=== PATIENT | female | born 1990 | race Caucasian/White ===

== ENCOUNTER → 2022-09-10 10:07 | Outpatient (CLI) | payer MEDICAID, SELFPAY ==
[2022-09-10 13:04] LABS: HCG,Quantitative 29184 mIU/ml (0-5.42)
[2022-09-11 11:13] LABS: Progesterone 19.3 ng/mL (.)
== END ==
PROVIDERS: PCP Pediatrics; Visit Provider Obstetrics & Gynecology
DX: N92.6 Irregular menstruation, unspecified (principal); Z32.00 Encounter for pregnancy test, result unknown
CPT/HCPCS: 36415; 84144; 84702

== ENCOUNTER → 2022-09-19 16:44 | Outpatient (CLI) | payer MEDICAID, SELFPAY | PROVIDERS: Visit Provider Obstetrics & Gynecology | DX: Z34.90 Encounter for supervision of normal pregnancy, unspecified, unspecified trimester (principal) | CPT/HCPCS: 87086 ==

== ENCOUNTER → 2022-10-01 11:32 | Outpatient (CLI) | payer MEDICAID, SELFPAY ==
[2022-10-01 12:24] LABS: Basophils # 0.1 K/mm3 (0-0.2); Basophils % 0.9 % (0.1-2.0); Eosinophils # 0.4 K/mm3 (0.0-0.4); Eosinophils % 3.7 % (0.1-12.0); Hematocrit 38.8 % (37.0-47.0); Hemoglobin 12.7 g/dL (12.2-16.2); Lymphocytes # 2.8 K/mm3 (0.7-4.5); Lymphocytes % 28.5 % (10-50); Mean Corpuscular HGB Conc 32.8 g/dL (31.8-35.4); Mean Corpuscular Hemoglobin 31.1 pg (27.0-31.2); Mean Corpuscular Volume 94.8 fl (81-99); Mean Platelet Volume 10.6 fl (7.4-10.4); Monocytes # 0.6 K/mm3 (0.1-1.0); Monocytes % 5.6 % (1.7-9.3); Neutrophils # 6.1 K/mm3 (1.8-7.8); Neutrophils % 61.3 % (37.0-80.0); Platelet Count 189 K/mm3 (142-424); Red Blood Count 4.09 M/mm3 (4.20-5.40); Red Cell Distribution Width 13.3 % (11.5-17.5)
[2022-10-02 09:01] LABS: HIV Screen 4th Generation wRfx Non Reactive (Non Reactive); Rubella Antibodies, IgG 2.05 index (Immune >0.99)
[2022-10-02 15:29] LABS: Rapid Plasma Reagin Ab Titer Non Reactive (NonRea<1:1)
[2022-10-06 02:20] LABS: Hepatitis B Surface Antigen Negative; Hepatitis C Antibody Non Reactive
== END ==
PROVIDERS: PCP Pediatrics; Visit Provider Obstetrics & Gynecology
DX: Z34.90 Encounter for supervision of normal pregnancy, unspecified, unspecified trimester (principal)
CPT/HCPCS: 36415; 85025; 86593; 86703; 86762; 86850; 87340; 87380; G0432

== ENCOUNTER → 2022-12-12 10:19 | Outpatient (CLI) | payer MEDICAID, SELFPAY ==
--- NOTE | 2022-12-12 10:19 | US_ITS ---
FINAL REPORT CLINICAL HISTORY: 20 week anatomy scan please use anatomy template FINDINGS: There is a single live intrauterine gestation. Presentation is breech. The cervix is closed and measures 3.4 cm. Placenta is posterior, grade 1. There is placenta previa. movement is noted. Heart rate is detected at 129 beats per minute. Four-chamber heart is noted. ABDOMEN: Both kidneys are unremarkable. Stomach is unremarkable. SPINE: No anomalies identified. AMNIOTIC FLUID: Appropriate amount. MEASUREMENTS: ULTRASOUND AGE: 20 weeks 5 days. GESTATION AGE: 20 weeks 3 days. ESTIMATED WEIGHT: 368 g GROWTH PERCENTILE: 58 % BPD: 4.93 cm corresponding to 21 weeks 0 days. OFD: 6.07 cm corresponding to 20 weeks 4 days. HC: 17.37 cm corresponding to 20 weeks 0 days. AC: 15.89 cm corresponding to 21 weeks 1 day. FL: 3.31 cm corresponding to 20 weeks 3 days. CEREBELLUM: 2.01 cm corresponding to 20 weeks 4 days. HUMERUS: 3.16 cm corresponding to 20 weeks 4 days. HC/AC: 1.09 CI: 81% FL/BPD: 67% FL/AC: 21% IMPRESSION: Single living IUP with an ultrasound age of 20 weeks 5 days. Placenta previa. Recommend additional follow-up. Reviewed, Interpreted and Dictated by Ronnie Payton III, MD Transcribed by Liya Llamas Authenticated and [facility]
== END ==
PROVIDERS: PCP Pediatrics; Visit Provider Obstetrics & Gynecology
DX: Z34.90 Encounter for supervision of normal pregnancy, unspecified, unspecified trimester (principal); Z3A.20 20 weeks gestation of pregnancy
CPT/HCPCS: 76811

== ENCOUNTER → 2023-01-25 09:51 | Outpatient (CLI) | payer MEDICAID, SELFPAY ==
[2023-01-25 10:06] LABS: Basophils # 0.1 K/mm3 (0-0.2); Basophils % 0.6 % (0.1-2.0); Eosinophils # 0.3 K/mm3 (0.0-0.4); Eosinophils % 2.4 % (0.1-12.0); Hematocrit 38.9 % (37.0-47.0); Hemoglobin 12.5 g/dL (12.2-16.2); Lymphocytes # 2.5 K/mm3 (0.7-4.5); Lymphocytes % 18.3 % (10-50); Mean Corpuscular HGB Conc 32.1 g/dL (31.8-35.4); Mean Corpuscular Hemoglobin 30.1 pg (27.0-31.2); Mean Corpuscular Volume 93.5 fl (81-99); Mean Platelet Volume 9.9 fl (7.4-10.4); Monocytes # 0.7 K/mm3 (0.1-1.0); Monocytes % 5.1 % (1.7-9.3); Neutrophils # 10.3 K/mm3 (1.8-7.8); Neutrophils % 73.7 % (37.0-80.0); Platelet Count 170 K/mm3 (142-424); Red Blood Count 4.16 M/mm3 (4.20-5.40); White Blood Count 13.9 K/mm3 (4.8-10.8)
[2023-01-25 10:19] LABS: Glucose,Fasting 76 mg/dl (74-100)
[2023-01-25 12:15] LABS: Glucose 1 Hour 103 mg/dL (74-100)
== END ==
PROVIDERS: PCP Pediatrics; Visit Provider Obstetrics & Gynecology
DX: Z34.92 Encounter for supervision of normal pregnancy, unspecified, second trimester (principal); Z3A.27 27 weeks gestation of pregnancy
CPT/HCPCS: 36415; 82951; 85025

== ENCOUNTER → 2023-02-07 12:53 | Outpatient (CLI) | payer MEDICAID, SELFPAY ==
--- NOTE | 2023-02-07 12:55 | US_ITS ---
PROCEDURE: US OB LIMITED POSITION CLINICAL INDICATION: locate placenta location COMPARISON: US US OB /MATERNAL DETAIL from 12/12/2022 FINDINGS: The following parameters are obtained: From her last established due date she is 28weeks 4days Viable fetus in the cephalic presentation with a posterior placenta grade 1. heart rate: 134bpm bpm. No obvious anomalies evident. profile, four chamber heart appears normal. Placenta: Posterior -placenta is posterior and appears to completely across the cervical os by 1 cm. There is one view that shows the edge of the placenta right at the cervical os. IMPRESSION: 1. Viable fetus in the cephalic presentation. 2. Posterior placenta previa comes at least to the internal os and may project slightly beyond on the transvaginal views . Dictated by: Yared Suarez MD 02/09/2023 14:10 Yared Suarez MD in OV 02/09/2023 14:10
== END ==
PROVIDERS: PCP Pediatrics; Visit Provider Obstetrics & Gynecology
DX: Z36.89 Encounter for other specified antenatal screening (principal); Z34.92 Encounter for supervision of normal pregnancy, unspecified, second trimester; Z3A.27 27 weeks gestation of pregnancy
CPT/HCPCS: 76815

== ENCOUNTER → 2023-03-28 00:04 | Outpatient (CLI) | payer MEDICAID, SELFPAY | PROVIDERS: PCP Nurse Practitioner Family; Visit Provider Nurse Practitioner Family | DX: J02.9 Acute pharyngitis, unspecified (principal); B95.1 Streptococcus, group B, as the cause of diseases classified elsewhere | CPT/HCPCS: 87070; 87077; 87186 ==

== ENCOUNTER → 2023-04-04 12:00 | Outpatient (CLI) | payer MEDICAID, SELFPAY | PROVIDERS: PCP Nurse Practitioner Family; Visit Provider Obstetrics & Gynecology | DX: Z34.93 Encounter for supervision of normal pregnancy, unspecified, third trimester (principal); Z3A.36 36 weeks gestation of pregnancy | CPT/HCPCS: 86403 ==

== ENCOUNTER 2023-05-03 05:08 | Inpatient (IN) | payer MEDICAID, SELFPAY ==
[2023-05-03] VITALS (8 sets, daily range): BP systolic 109–154; BP diastolic 55–74; PULSE 65–85; RESP 11–20; TEMP 36.1–36.7; O2SAT 97–100; BMI 28.1
[2023-05-03 05:47] LABS: Appearance,Urine CLEAR (Clear); Bilirubin,Urine Negative (Negative); Blood, Urine Negative (Negative); Color,Urine YELLOW (Yellow); Glucose,Urine (UA) Negative (Negative); Ketones,Urine Negative (Negative); Leukocyte Esterase,Urine Negative (Negative); Microscopic, Urine URINE MICROSCOPIC (MICROSCOPIC); Nitrate,Urine Negative (Negative); Protein,Urine Negative (Negative); Specific Gravity, Urine >= 1.030 (1.005-1.030); Urobilinogen,Urine 0.2 EU/dl (0.2)
[2023-05-03 05:48] LABS: Basophils # 0.1 K/mm3 (0-0.2); Basophils % 0.8 % (0.1-2.0); Eosinophils # 0.3 K/mm3 (0.0-0.4); Eosinophils % 1.7 % (0.1-12.0); Hematocrit 41.8 % (37.0-47.0); Hemoglobin 13.9 g/dL (12.2-16.2); Lymphocytes # 3.6 K/mm3 (0.7-4.5); Lymphocytes % 20.3 % (10-50); Mean Corpuscular HGB Conc 33.4 g/dL (31.8-35.4); Mean Corpuscular Hemoglobin 31.2 pg (27.0-31.2); Mean Corpuscular Volume 93.6 fl (81-99); Mean Platelet Volume 10.7 fl (7.4-10.4); Monocytes # 0.9 K/mm3 (0.1-1.0); Monocytes % 5.1 % (1.7-9.3); Neutrophils # 12.8 K/mm3 (1.8-7.8); Neutrophils % 72.1 % (37.0-80.0); Platelet Count 188 K/mm3 (142-424); Red Blood Count 4.47 M/mm3 (4.20-5.40); Red Cell Distribution Width 13.1 % (11.5-17.5); White Blood Count 17.8 K/mm3 (4.8-10.8)
[2023-05-03 05:49] LABS: MANUAL DIFFERENTIAL MANUAL DIFFERENTIAL (MANUAL DIFF)
[2023-05-03 06:00] LABS: Amphetamine/Metha Screen,Urine Negative ng/ml (<1000)
[2023-05-03 06:01] LABS: Barbiturates Screen,Urine Negative ng/ml (<200)
[2023-05-03 06:02] LABS: Eosinophils % 4 % (0-3); Lymphocytes % 25 % (10-50); Monocytes % 4 % (2-9); Neutrophils % 62 % (42-76); Total Cells Counted 100
[2023-05-03 06:02] LABS: Benzodiazepines Screen,Urine Negative ng/ml (<200); Cannabinoid Screen,Urine Negative ng/ml (<50)
[2023-05-03 06:03] LABS: Platelet Estimate Normal; RBC Morphology Normal
[2023-05-03 06:03] LABS: Cocaine Screen,Urine Negative ng/ml (<300)
[2023-05-03 06:04] LABS: Methadone Screen,Urine Negative ng/ml (<300); Opiate Screen,Urine Negative ng/ml (<300)
[2023-05-03 06:05] LABS: Phencyclidine Screen,Urine Negative ng/ml (<25); Squamous Epithelial Cell,Urine Occasional #/hpf (0-5); WBC,Urine Occasional #/hpf (0-3)
--- NOTE | 2023-05-03 08:43 | EXP.OB.APHP ---
OB - H&P: HPI Antepartum History of Present Illness Chief complaint: Elective induction of labor History of present illness: Mrs Vijaya Vail is a 32 yo at 40w5d who presents to [facility] Labor and Delivery for scheduled induction of labor for post term. She admits contractions starting increasing this morning. Baby is active. She has had good care. GBS negative. History of Present Criteria for establishing EDC:: LMP confirmed by 1st trimester US care: good care Ultrasounds: normal mid trimester US Obstetrical complications: none Medical complications: none Labs Blood type: O (+) positive Rubella: immune RPR/VDRL: nonreactive GBS status: negative HBsAG: negative PFSH [facility] Disclaimer: The information contained in this section may have been updated after the patient was seen, as this information can be updated by other users. Medical History (Updated 05/03/23 @ 08:50 by Shilpa Lloyd DO) Encounter for induction of labor Marijuana use during Maternal tobacco use, antepartum Placenta previa antepartum Post term over 40 weeks Surgical History No history of previous surgery Family History Other No significant family history Social History Smoking Status: Current every day smoker tobacco type: cigarettes alcohol intake: never substance use type: denies use current occupational status: unemployed Travel in the last 8 weeks: None Review of Systems Review of Systems Review of systems:: pertinent systems reviewed and negative unless documented below Meds Home Medications and Allergies Home Medications Medication Instructions Recorded Confirmed Type prenat.vits,carola,[id number] 1 tab PO DAILY #30 tabs 09/19/22 04/29/23 Rx amoxicillin 500 mg capsule 500 mg PO TID 04/25/23 04/29/23 History New Prescriptions to Start Prescriptions: Allergies Allergy/AdvReac Type Severity Reaction Status Date / Time No Known Allergies Allergy Verified 04/29/23 12:59 OB - H&P: Exam Constitutional no acute distress and cooperative Routine HEENT Exam Head: Present normocephalic and atraumatic Eye: Absent conjunctivae pink ENT: Present mucous membranes moist Routine Neck Exam Present full ROM Routine Respiratory Exam Present CTA bilaterally and normal respiratory effort Routine Cardiovascular Exam Present RRR Routine Abdominal Exam Present soft (Gravid); Absent tenderness Routine Rectal Exam Patient deferred: visual exam Routine Exam External: Present normal urethra appearance; Absent erythema, tenderness, lesions, lacerations or vulvar tenderness Routine Extremities Exam Present edema (+1 bilateral lower extremity edema) and full ROM; Absent calf tenderness Routine Neurological Exam Present alert, oriented X3 and moving all extremities Routine Psychiatric Exam Present normal affect and cooperative Detailed Labor and Delivery Exam Dilation (cm): 4 Effacement (%): 60 Cervix position: posterior station: -2 Consistency: soft Membranes: artificially ruptured (amniotomy performed without difficulty, light meconium stained amniotic fluid) Amniotic fluid: thin meconium Baseline heart rate: 130 monitor accelerations: Present monitor decelerations: None terminal superintendent variability: Moderate (11-25) Contraction frequency (min): 2 OB - Results Labs Labs: Short CBC 05/03/23 Range/Units 05:30 WBC 17.8 H (4.8-10.8) K/mm3 Hgb 13.9 (12.2-16.2) g/dL Hct 41.8 (37.0-47.0) % Plt Count 188 (142-424) K/mm3 Urine 05/03/23 Range/Units 05:26 Urine Color Yellow (Yellow) Urine Appearance Clear (Clear) Urine pH 6.0 (5.0-8.5) Ur Specific [place] >= 1.030 (1.005-1.030) Urine Protein Negative (Negative) Urine Glucose (UA) Negat
--- NOTE | 2023-05-03 08:55 | HMH.PHAINT1 ---
Pharmacy Intervention Comments: MEDICATION RECONCILIATION COMPLETED ON PATIENT USING EXTERNAL FILL HISTORY FROM PHARMACY. -NICHOLAS HOROWITZ, CHARMAINED
--- NOTE | 2023-05-03 15:58 | EXP.LABOR.NO ---
Labor Note Subjective: Date: 05/03/23 Time: 15:58 irregular contractions Objective: NST:: Reactive Cervical Dilation:: 5 Effacement:: 60% Station: -2 Membranes: artificially ruptured Comment:: meconium stained amniotic fluid Fetus: monitoring type:: Internal and External Assessment: Labor progressing?: No Cephalopelvic disproportion?: Yes Problems: (1) Post term over 40 weeks: Category: Medical Code(s): O48.0 - Post-term (2) Encounter for induction of labor: Category: Medical Code(s): Z34.90 - Encounter for supervision of normal , unspecified, unspecified trimester (3) Marijuana use during : Category: Medical Code(s): O99.320 - Drug use complicating , unspecified trimester; F12.90 - Cannabis use, unspecified, uncomplicated (4) Maternal tobacco use, antepartum: Category: Medical Code(s): O99.330 - Smoking (tobacco) complicating , unspecified trimester (5) Cephalopelvic disproportion: Category: Medical Code(s): O33.9 - Maternal care for disproportion, unspecified Plan: Anesthesia for epidural?: No Plan for ?: Yes Additional information:: Cervical exam unchanged over the past 4 hours. Upon exam, baby was felt to be asynclitic. Discussed exam findings with patient Decision was made to proceed with primary secondary to CPD. Discussed risks, benefits, alternatives, expectations and possible complications of surgery. All questions addressed and answered. She voiced understanding of risks and possible complications. Consent form signed. Proceed with primary
--- NOTE | 2023-05-03 18:15 | EXP.OP.NOTE ---
Date of procedure: 05/03/23 Pre-op Diagnosis:: 1. IUP at 40w5d 2. Elective induction of labor 3. Marijuana use in 4. Tobacco use 5. Failure to progress 6. Cephalopelvic disproportion Post-op Diagnosis:: 1. IUP at 40w5d 2. Elective induction of labor 3. Marijuana use in 4. Tobacco use 5. Failure to progress 6. Cephalopelvic disproportion 7. Nuchal cord x 1 Procedure performed:: Primary Low Transverse Section Surgeon:: Shilpa Lloyd DO Gis Consultant(s):: Isaura Vu DO SURVEILLANCE TECHNICIAN:: Other (FEDERICO Gutierrez) Anesthesia: spinal Estimated blood loss (mL): 700 Clinical Note:: Mrs Vijaya Vail is a 32 yo at 40w5d admitted to [facility] Labor and Delivery for scheduled induction of labor for post dates. Induction was performed with Pitocin and amniotomy. She progressed to 5/60/-2, posterior with no further progression over 4 hours. Baby was felt to be asynclitic on exam. Decision was made to proceed with primary secondary to CPD and failure to progress. Operative findings:: 1. Live female baby, Gelacio, weighing 7lb 11 oz. APGARs 7, 9 2. Grossly normal appearing uterus, bilateral fallopian tubes and ovaries 3. Nuchal cord x 1, easily reduced Operative note:: The risks, benefits and alternatives of the procedure were reviewed with the patient. Informed consent was obtained. Patient was taken to the operating room where spinal anesthesia was placed. The patient received 2 grams of Ancef and Azithromycin 500 mg preoperatively. Patient was placed in dorsal supine position with a leftward tilt. SCDs in place. Canales catheter was inserted and draining clear urine prior to the start of the procedure. heart tones were obtained, 148. Vagina was prepped with Betadine swabs x 3. Patient was then prepped and draped in normal sterile fashion. Allis clamp test was performed to ensure adequate anesthesia. A Pfannenstiel skin incision was made 2 cm above pubic symphysis. This was carried through to underlying layer of fascia. Fascia was incised in midline, extended laterally with Ramos scissors. Superior aspect of fascial incision was grasped with two Kassy clamps, elevated up, and rectus muscle dissected off bluntly and sharply with Ramos scissors. The retcus muscle was then in the midline and the peritoneum was entered bluntly with a digit. Peritoneal incision was then extended superiorly and inferiorly with good visualization of the bladder. Adeel retractor was inserted. The lower uterine segment was incised in a transverse fashion. Clear amniotic fluid was noted. Head was delivered without difficulty. Nuchal x 1 was easily reduced. Remainder of body was delivered without difficulty. Mouth and nares were bulb suctioned. Spontaneous cry was noted. Delayed cord clamping was performed for 60 seconds. The umbilical cord was clamped and cut. The was handed to awaiting pediatric staff in stable condition. Dr. Kelsey was present. Apgars were 7(1 min), 9(5 min). Cord blood was obtained. Gentle traction on the umbilical cord and uterine fundal massage delivered the placenta. Placenta was intact. Placenta will be sent to pathology for review. Uterus was cleared of all clots and debris with a moist laparotomy sponge. Corners of the uterine incision were grasped with Allis clamps. The uterine incision was reapproximated with # 1 Vicryl suture in a running, locked stitch. Hemostasis was noted. However, edges of uterine incision appeared raw. Surgicel powder was applied over closed uterine incision. Posterior cul-de-sac was cleaned with moist laparotomy sponge. Gutters cleared of all clots and debris with a moist laparotomy sponge. Reinspection of the lower uterine segment demonstrated small amount of oozing. Blanca was applied over uterine incision. Hemostasis was noted. At this point all instruments and sponges were removed from the pelvis.? The peritoneum was grasped with Mae clamps x 3. The peritoneum was reapproximated w
--- NOTE | 2023-05-03 18:59 | EXP.ANES.CKL ---
[facility] Disclaimer: The information contained in this section may have been updated after the patient was seen, as this information can be updated by other users. Medical History (Updated 05/03/23 @ 16:06 by Shilpa Lloyd DO) Cephalopelvic disproportion Encounter for induction of labor Marijuana use during Maternal tobacco use, antepartum Placenta previa antepartum Post term over 40 weeks Surgical History No history of previous surgery Family History Other No significant family history Social History Smoking Status: Current every day smoker tobacco type: cigarettes alcohol intake: never substance use type: denies use current occupational status: unemployed Travel in the last 8 weeks: None [facility] Anesthesia Checklist Patient Identification Patient Identification: Arm Band and Family Structural Data Admitted From: Home Planned Operative Procedure/s: , due to cpd. Verified Documents: Surgical Consent and History and Physical NPO Status Verified Time NPO: 00:00 Additional verifications Patient : Yes Anesthesia Reactions: No Hx Blood Transfusions: No Blood Transfusion Reaction: No Cephalosporin Allergy: No Previous Colonoscopy: No Airway Assessment Mallampati Score:: Class II C-Spine Mobility Assessed: Yes TMJ Mobility Assessed: Yes Dentition: Good Dentition Neurological Assessment Level of Consciousness: Alert, Appropriate and Follows Commands Hx Seizures: No Numbness or tingling in extremities: No Anesthesia Plan Anesthesia Risk discussed: Yes ASA Class: I Anesthesia Type: Spinal Preoperative Comments Pre-Operative Comments: CPD.
--- NOTE | 2023-05-03 19:02 | EXP.ANES.I ---
[facility] Anesthesia Record Part I Anesthesia Record I Intake, IV Amount: 1,254 Hydration: Adequate Estimated blood loss (mL): 700 Urine output (mL): 1,000 Blood Products used (#): none Blood Pressure: 154/67 SaO2: 98 Pulse Rate: 65 Airway Patency: Patent Respiratory Rate: 14 Temperature: 97 F Patient is:: Awake and Stable Stable to PACU at:: 18:10
[2023-05-03 19:54] LABS: Microscopic,Cath URINE MICROSCOPIC (MICROSCOPIC)
[2023-05-03 20:24] LABS: Appearance,Urine/Cath CLEAR (Clear); Bilirubin,Cath Negative (Negative); Blood, Urine/Cath 1+ (Negative); Color,Urine/Cath YELLOW (Yellow); Glucose,Urine/Cath (UA) Negative (Negative); Ketones,Urine/Cath Negative (Negative); Leukocyte Esterase,Cath Negative (Negative); Nitrate,Cath Negative (Negative); Protein,Urine/Cath Negative (Negative); Urobilinogen,Cath 0.2 EU/dl (0.2)
[2023-05-03 20:37] LABS: RBC,Urine/Cath Occasional # /hpf (0-3)
[2023-05-04 00:21] VITALS: BP 121/57; PULSE 68; RESP 17; TEMP 36.8; O2SAT 98
[2023-05-04 04:05] VITALS: BP 106/51; PULSE 63; RESP 18; TEMP 36.9; O2SAT 98
[2023-05-04 07:43] LABS: Basophils # 0.1 K/mm3 (0-0.2); Basophils % 0.2 % (0.1-2.0); Eosinophils % 0.2 % (0.1-12.0); Hematocrit 34.4 % (37.0-47.0); Hemoglobin 11.2 g/dL (12.2-16.2); Lymphocytes # 2.5 K/mm3 (0.7-4.5); Lymphocytes % 11.2 % (10-50); Mean Corpuscular HGB Conc 32.7 g/dL (31.8-35.4); Mean Corpuscular Volume 95.1 fl (81-99); Mean Platelet Volume 11.4 fl (7.4-10.4); Monocytes # 1.2 K/mm3 (0.1-1.0); Monocytes % 5.4 % (1.7-9.3); Neutrophils # 18.2 K/mm3 (1.8-7.8); Neutrophils % 82.9 % (37.0-80.0); Platelet Count 169 K/mm3 (142-424); Red Blood Count 3.62 M/mm3 (4.20-5.40); Red Cell Distribution Width 13.3 % (11.5-17.5)
[2023-05-04 07:48] LABS: MANUAL DIFFERENTIAL MANUAL DIFFERENTIAL (MANUAL DIFF)
[2023-05-04 08:41] LABS: Lymphocytes % 13 % (10-50); Monocytes % 5 % (2-9); Neutrophils % 82 % (42-76); Total Cells Counted 100
[2023-05-04 08:42] LABS: Platelet Estimate Normal; RBC Morphology Normal
--- NOTE | 2023-05-04 10:27 | PC.NURSE ---
Call made to central intake r/t positive drug screens on mom. 09/19/22 THC, 01/31/23 cocaine metabolite. Web ID [id number] and spoke with a female with ID number [id number]. Called at 1006.
--- NOTE | 2023-05-04 12:06 | EXP.ACUTE.PN ---
Subjective *Date: 05/04/23 *Time: 12:06 Interval history: POD # 1 s/p PLTCS Sitting comfortably in bed. Breast feeding. Pain controlled. Appropriate lochia. Tolerating regular diet. Voiding without difficulty and passing flatus. Ambulating well ad yolanda. Denies fever/chills, chest pain and shortness of breath. No headaches, vision changes, dizziness/lightheadedness. Medical Exam Vital signs and Labs for Last 24 Hours: Vital Signs Temp Pulse Pulse Resp BP BP Pulse Ox 05/04/23 04:05 98.5 F 63 18 106/51 L 98 05/04/23 00:21 98.2 F 68 17 121/57 L 98 05/03/23 19:06 97.5 F L 75 18 122/69 97 05/03/23 19:00 97.0 F L 76 14 130/72 100 05/03/23 18:50 97.0 F L 74 13 128/73 100 05/03/23 18:40 97.0 F L 70 11 L 131/74 100 05/03/23 18:30 97.0 F L 68 13 133/68 100 05/03/23 18:20 97.0 F L 80 20 141/72 H 100 05/03/23 18:10 97.0 F L 67 12 154/67 H 99 05/03/23 19:06 97 F L 65 14 154/67 H O2 Del Method 05/04/23 04:05 Room Air 05/04/23 00:21 Room Air 05/03/23 19:06 Room Air 05/03/23 19:00 Room Air 05/03/23 18:50 Room Air 05/03/23 18:40 Room Air 05/03/23 18:30 Room Air 05/03/23 18:20 Room Air 05/03/23 18:10 Room Air 05/03/23 19:06 Intake and Output 05/03/23 05/04/23 05/04/23 23:59 07:59 15:59 Intake Total 1254 / 1254 Balance 1254 / 1254 Intake: Intake, Total IV Amount 1254 / 1254 Laboratory Results - last 24 hr 05/03/23 17:24: Urine Color Yellow, Urine Appearance Clear, Urine pH 6.0, Ur Specific [place] 1.010, Urine Protein Negative, Urine Glucose (UA) Negative, Urine Ketones Negative, Urine Blood 1+, Urine Nitrate Negative, Urine Bilirubin Negative, Urine Urobilinogen 0.2, Ur Leukocyte Esterase Negative, Urine RBC Occasional, Urine WBC None, Ur Squamous Epith Cells None, Urine Bacteria None 05/04/23 07:26: WBC 22.0 H*, RBC 3.62 L, Hgb 11.2 L, Hct 34.4 L, MCV 95.1, MCH 31.0, MCHC 32.7, RDW 13.3, Plt Count 169, MPV 11.4 H, Neut % (Auto) 82.9 H, Lymph % (Auto) 11.2, [place] % (Auto) 5.4, Eos % (Auto) 0.2, Baso % (Auto) 0.2, Neut # (Auto) 18.2 H, Lymph # (Auto) 2.5, [place] # (Auto) 1.2 H, Eos # (Auto) 0.0, Baso # (Auto) 0.1, Total Counted 100, Neutrophils % (Manual) 82 H, Lymphocytes % (Manual) 13, Monocytes % (Manual) 5, Platelet Estimate Normal, RBC Morphology Normal I & O for Labs for Last 24 Hours: Intake & Output 05/01/23 05/02/23 05/03/23 05/04/23 23:59 23:59 23:59 23:59 Intake Total 1254 / 1254 Balance 1254 / 1254 Weight 180 lb Assessment and Plan *Assessment and plan (1) Post term over 40 weeks: Status: Acute Category: Medical Code(s): O48.0 - Post-term (2) S/P : Status: Acute Category: Surgical Code(s): Z98.891 - History of uterine scar from previous surgery (3) Encounter for induction of labor: Status: Acute Category: Medical Code(s): Z34.90 - Encounter for supervision of normal , unspecified, unspecified trimester (4) Failure to progress in labor: Status: Acute Category: Medical Code(s): O62.2 - Other uterine inertia (5) Cephalopelvic disproportion: Status: Acute Category: Medical Code(s): O33.9 - Maternal care for disproportion, unspecified (6) Marijuana use during : Status: Acute Category: Medical Code(s): O99.320 - Drug use complicating , unspecified trimester; F12.90 - Cannabis use, unspecified, uncomplicated (7) Maternal tobacco use, antepartum: Status: Acute Category: Medical Code(s): O99.330 - Smoking (tobacco) complicating , unspecified trimester (8) Acute blood loss anemia: Status: Acute Category: Medical Code(s): D62 - Acute posthemorrhagic anemia Plan Continue routine care Encouraged increased ambulation Plan d/c home POD # 2 or POD # 3
[2023-05-04 20:03] VITALS: BP 124/74; PULSE 69; RESP 17; TEMP 36.9; O2SAT 100
[2023-05-05 03:23] VITALS: BP 116/59; PULSE 65; RESP 17; TEMP 36.7; O2SAT 98
[2023-05-05 08:36] VITALS: BP 121/74; PULSE 67; RESP 18; TEMP 36.7; O2SAT 97
--- NOTE | 2023-05-05 08:53 | PC.NURSE ---
Inquired with central intake on an update on the case. New report made related to MAEGAN scoring. Spoke with Ana with ID #[id number] and new web ID #[id number]- Ana states she will call Henrry MELO operations trainer social service agency director and report all information that was given.
--- NOTE | 2023-05-05 09:39 | EXP.DC.SUM ---
General Admission date:: 05/03/23 Discharge date: 05/05/23 HPI HPI HPI: POD # 2 s/p PLTCS Resting comfortably in bed. Pain controlled. Breast feeding. Light lochia. Voiding without difficulty and passing flatus. Tolerating regular diet. Denies fever/chills, chest pain and shortness of breath. No headaches, vision changes, lightheadness/dizziness. Admits to mild lower extremity edema Ambulating well ad yolanda. Hospital Course Hospital Course Hospital Course: Mrs Vijaya Vail is a 32 yo at 40w5d admitted to [facility] Labor and Delivery for scheduled induction of labor for post dates. Induction was performed with Pitocin and amniotomy. She progressed to 5/60/-2, posterior with no further progression over 4 hours. Baby was felt to be asynclitic on exam. Decision was made to proceed with primary secondary to CPD and failure to progress. She underwent a primary on 05/03/23. She delivered a live female baby, Gelacio, weighing 7lb 11 oz. APGARs 7, 9. EBL 700 mL. She did well postoperatively/. Pain controlled. Light lochia. Breast feeding. Voiding without difficulty and passing flatus. Tolerating regular diet. Vital signs stable, afebrile. Heart regular rate and rhythm. Lungs clear to auscultation. Abdomen soft, nontender and incision clean/dry/intact. She had +1 bilateral lower extremity edema. No calf tenderness to palpation. She was ambulating well ad yolanda. Normal hospital course. She was discharged to home on POD # 2. Exam Data for Last 24 hours Vital signs and Labs for Last 24 Hours: Temp Pulse Resp BP Pulse Ox O2 Del Method 98.0 F 67 18 121/74 97 Room Air 05/05/23 08:36 05/05/23 08:36 05/05/23 08:36 05/05/23 08:36 05/05/23 08:36 05/05/23 08:36 I & O for Last 24 hours: Intake & Output 05/02/23 05/03/23 05/04/23 05/05/23 23:59 23:59 23:59 23:59 Intake Total 1254 / 1254 Balance 1254 / 1254 Weight 180 lb Constitutional Constitutional: no acute distress and cooperative *Routine HEENT Exam Head: Present normocephalic and atraumatic Eye: Absent conjunctivae pink ENT: Present mucous membranes moist *Routine Neck Exam Neck: Present full ROM *Routine Respiratory Exam Respiratory: Present CTA bilaterally and normal respiratory effort *Routine Cardiovascular Exam Cardiovascular: Present RRR *Routine Abdominal Exam Abdominal: Present soft and normoactive bowel sounds; Absent tenderness or distended Comments: Uterine fundus firm and below umbilicus, pfannenstiel incison clean/dry/intact with steri strips in place *Routine Rectal Exam Patient deferred: visual exam *Routine Exam Patient deferred: external exam *Routine Extremities Exam Extremities: Present edema (+1 bilateral lower extremity edema) and full ROM; Absent calf tenderness *Routine Neurological Exam Neurological: Present alert, oriented X3 and moving all extremities Routine Psychiatric Exam Psychiatric: Present normal affect and cooperative DS: Diagnosis Discharge Diagnosis (1) Post term over 40 weeks: Status: Acute Code(s): O48.0 - Post-term (2) S/P : Status: Acute Code(s): Z98.891 - History of uterine scar from previous surgery (3) Encounter for induction of labor: Status: Acute Code(s): Z34.90 - Encounter for supervision of normal , unspecified, unspecified trimester (4) Failure to progress in labor: Status: Acute Code(s): O62.2 - Other uterine inertia (5) Cephalopelvic disproportion: Status: Acute Code(s): O33.9 - Maternal care for disproportion, unspecified (6) Marijuana use during : Status: Acute Code(s): O99.320 - Drug use complicating , unspecified trimester; F12.90 - Cannabis use, unspecified, uncomplicated (7) Maternal tobacco use, antepartum: Status: Acute Code(s): O99.330 - Smoking (tobacco) complicating , unspecified trimeste
[2023-05-06 14:28] VITALS: BP 130/72; PULSE 76; RESP 14; TEMP 36.1; O2SAT 100
--- NOTE | 2023-05-06 14:28 | P.PNANES_ITS ---
[facility] Anesthesia Record Part II Anesthesia Record Part II Discharge Time: 19:00 Destination: Obstetric PACU nurse assessment reviewed?: Yes Patient Condition:: Good Anesthesia Complications:: None Swallowing reflex intact?: Yes Airway Patency: Patent Cyanosis?: No Blood Pressure: 130/72 SaO2: 100 Respiratory Rate: 14 Pulse Rate: 76 Temperature: 97 F Mental Status: Alert & Oriented Pain level:: 0 Nausea and/or vomitting:: None Intake, IV Amount: 0 Hydration: Adequate
== END 2023-05-05 12:33 | disposition home or self-care (01) | DRG 787 ==
PROVIDERS: Admitting Provider Nurse Practitioner Obstetrics & Gynecology; PCP Pediatrics; Visit Provider Obstetrics & Gynecology
PROC: 10D00Z1 Extraction of Products of Conception, Low, Open Approach (ICD-10-PCS; CPT 59514; principal; 2023-05-03 16:50)
DX: O48.0 Post-term pregnancy (principal); O99.324 Drug use complicating childbirth; O99.334 Smoking (tobacco) complicating childbirth; Z3A.40 40 weeks gestation of pregnancy; Z37.0 Single live birth; O33.9 Maternal care for disproportion, unspecified; F12.90 Cannabis use, unspecified, uncomplicated; O62.0 Primary inadequate contractions; O69.81X0 Labor and delivery complicated by cord around neck, without compression, not applicable or unspecified; O62.2 Other uterine inertia; F17.210 Nicotine dependence, cigarettes, uncomplicated
CPT/HCPCS: 59514; 36415; 59025; 80305; 81001; 85007; 85025; 86850; 88307; C1758; C9290; J0456; J0690

== ENCOUNTER 2023-06-18 11:31 | Emergency (ER) | payer MEDICAID, SELFPAY ==
[2023-06-18 11:40] VITALS: BP 141/90; PULSE 102; RESP 18; TEMP 36.9; O2SAT 100; BMI 27.1
[2023-06-18 11:58] LABS: UTC Strep Screen (Rapid) Negative (Negative)
--- NOTE | 2023-06-18 12:01 | EXP.UTC ---
Discharge Plan Disposition Patient Disposition: Home, Self-Care Condition: Good Prescriptions Prescriptions: New amoxicillin 500 mg capsule 500 mg PO BID 10 Days Qty: 20 0RF No Action PNV cmb#95-ferrous fumarate-FA [] 28 mg iron- 800 mcg tablet 1 tab PO DAILY Referrals Follow up/Referrals: Jignesh Sheffield [Primary Care Provider] - See instructions Activity Restrictions/Add. Instructions Additional Instructions/Restrictions: *Monitor Temp, Over the counter Motrin or Tylenol as directed/as needed Tylenol every 4 hours and Motrin every 6 hours (as long as your family doctor has told you that you can take it) for fever or pain. and straight to ER if unable to lower temp less than 101.0 after medication given *Warm salt water gargles may help to soothe the throat *Throat Lozenges? *Warm fluids like tea with honey may help to soothe the throat? *Sleep elevated *Humidifier/Vaporizer Take medication as prescribed Your throat swab was sent for culture. Those results are typically sent to your primary care. Be sure to follow up in 2-3 days with your family doctor/primary care physician if no improvement so they can review those result and treat if necessary. If you don?t have a primary care doctor, I recommend you get one but in the mean time, you will have to return to a walk in clinic Follow up IMMEDIATELY for new or worsening symptoms or no Noticeable improvement over the next 48-72 hours. 911 for difficulty breathing or swallowing Clinical Impressions Clinical Impression: Pharyngitis Qualifiers: Pharyngitis/tonsillitis etiology: unspecified etiology Qualified Code(s): J02.9 - Acute pharyngitis, unspecified Instructions Patient Instructions: Sore Throat Discharge ED Provider: [place]bar[place] [facility] [place] General Stated complaint: POSSIBLE STREP Mode of Arrival: Ambulatory Source of Information: Patient Limitations: No Limitations Time Seen by Provider: 06/18/23 12:01 Description of Symptoms (Recalled from Triage Doc. by RN): PATIENT C/O SORE THROAT, NECK PAIN, AND HEADACHE SINCE YESTERDAY HEENT Symptoms (Recalled from RN notes): Yes Resp Symptoms (Recalled from RN notes): No Skin Symptoms (Recalled from RN notes): No MS Symptoms (Recalled from RN notes): No Functional Status (Recalled from RN notes): WNL History of Present Illness Provider Complaint: Patient states that she thinks she has strep throat States that she has been having sore throat, pain in the sides of her neck/throat area and headache like she has when she has strep throat States today her throat was hurting worse so she came in States that she is is breast feeding Related Data Home Medications Medication Instructions Recorded Confirmed vit no.95-ferrous 1 tab PO DAILY Supplement 05/03/23 05/20/23 fumarate 28 mg-folic acid 800 mcg tablet () Previous Rx's Medication Instructions Recorded amoxicillin 500 mg capsule 500 mg PO BID 10 days #20 caps 06/18/23 Allergies Allergy/AdvReac Type Severity Reaction Status Date / Time No Known Allergies Allergy Verified 05/20/23 15:55 Worker's Comp Is this a Worker's Comp case?: No PFS PFS Disclaimer: The information contained in this section may have been updated after the patient was seen, as this information can be updated by other users. Medical History Acute blood loss anemia Cephalopelvic disproportion Encounter for induction of labor Failure to progress in labor Marijuana use during Maternal tobacco use, antepartum Placenta previa antepartum Post term over 40 weeks Surgical History No history of previous surgery S/P Family History Other No significant family history Social History (Reviewed 05/20/23 @ 16
[2023-06-18 12:05] VITALS: BP 141/90; PULSE 102; RESP 18; TEMP 36.9; O2SAT 100
== END 2023-06-18 12:08 | disposition home or self-care (01) ==
PROVIDERS: Emergency Provider Nurse Practitioner; PCP Pediatrics
DX: J02.9 Acute pharyngitis, unspecified (principal); M54.2 Cervicalgia; R51.9 Headache, unspecified; F17.210 Nicotine dependence, cigarettes, uncomplicated
CPT/HCPCS: 87880; 99204; 99212; G0463

== ENCOUNTER 2023-07-08 12:37 | Emergency (ER) | payer MEDICAID, SELFPAY ==
[2023-07-08 12:40] VITALS: BP 166/70; PULSE 92; RESP 18; TEMP 36.8; O2SAT 97; BMI 25.0
--- NOTE | 2023-07-08 12:45 | EXP.UTC ---
Discharge Plan Disposition Patient Disposition: Home, Self-Care Condition: Good Prescriptions Prescriptions: New prednisone 10 mg tablet 10 mg PO BID 4 Days Qty: 8 0RF azithromycin [Zithromax] 250 mg tablet 250 mg PO UD DOSE PK Qty: 6 0RF Rx Instructions: Take two (2) tablets today, then one (1) tablet days #2 thru #5 [id number]-[id number]-VH [Bromfed DM] 2-30-10 mg/5 mL Syrup 5 ml PO Q6H PRN (Reason: Cough) Qty: 240 0RF Referrals Follow up/Referrals: Jigensh Sheffield [Primary Care Provider] - See instructions Activity Restrictions/Add. Instructions Additional Instructions/Restrictions: Drink plenty of fluids. Take tylenol or ibuprofen for pain or fever. Take the medications as directed. Follow up with your regular doctor. GO TO THE ER FOR ANY WORSENING SYMPTOMS Clinical Impressions Clinical Impression: Pharyngitis, Acute viral syndrome Instructions Patient Instructions: DI for Pharyngitis/Tonsillopharyngitis -- Adult, DI for Viral Syndrome Discharge ED Provider: Stone Egan [facility] General Stated complaint: sore throat, stuffy Time Seen by Provider: 07/08/23 12:44 History of Present Illness Provider Complaint: She states that for the past 2 days she has had worsening sore throat and sinus congestion. Related Data Previous Rx's Medication Instructions Recorded azithromycin 250 mg tablet 250 mg PO UD DOSE PK #6 tabs 07/08/23 (Zithromax) qnwcimrxnbohrvi-xrpllueptwffmql-BR 5 ml PO Q6H PRN Cough #240 mL 07/08/23 2 mg-30 mg-10 mg/5 mL oral syrup (Bromfed DM) prednisone 10 mg tablet 10 mg PO BID 4 days #8 tabs 07/08/23 Allergies Allergy/AdvReac Type Severity Reaction Status Date / Time No Known Allergies Allergy Verified 07/08/23 13:05 [facility] Disclaimer: The information contained in this section may have been updated after the patient was seen, as this information can be updated by other users. Medical History Acute blood loss anemia Cephalopelvic disproportion Encounter for induction of labor Failure to progress in labor Marijuana use during Maternal tobacco use, antepartum Placenta previa antepartum Post term over 40 weeks Surgical History No history of previous surgery S/P Family History Other No significant family history Social History Smoking Status: Current every day smoker tobacco type: cigarettes alcohol intake: never substance use type: denies use current occupational status: unemployed Travel in the last 8 weeks: None ROS Obtained: Yes All systems reviewed & no additional complaints except as documented Constitutional Constitutional: Reports chills and Denies fever(s) Eyes Eyes: Denies eye discharge ENT Ears, Nose, Mouth, and Throat: Reports as per HPI Cardiovascular Cardiovascular: Denies chest pain Respiratory Respiratory: Denies chest congestion and Reports cough Gastrointestinal Gastrointestingal: Reports nausea; Denies abdominal pain, constipation, cramping, diarrhea or vomiting Musculoskeletal Musculoskeletal: Denies arthralgias Integumentary/Breasts Skin/Breast: Denies rash Neurologic Neurologic: Denies paresthesias Physical Exam General General appearance: alert and in no apparent distress Head Head exam: atraumatic, normocephalic and normal inspection Eye Eye exam: Present normal appearance, PERRL and EOMI ENT ENT exam: Present mucous membranes moist and normal external ear exam Expanded ENT Exam TM/Canal exam: Bilateral TM: erythema and bulging Nose exam: Absent sinus tenderness Mouth exam: Present normal external inspection; Absent drooling Teeth exam: Present normal inspection Throat exam: Present tonsillar erythema, tonsillomegaly and tonsillar exudate
[2023-07-08 13:10] LABS: UTC Strep Screen (Rapid) Negative (Negative)
[2023-07-08 13:39] VITALS: BP 166/70; PULSE 92; RESP 18; TEMP 36.7; O2SAT 95
== END 2023-07-08 13:39 | disposition home or self-care (01) ==
PROVIDERS: Emergency Provider Nurse Practitioner Family; PCP Pediatrics
DX: J02.9 Acute pharyngitis, unspecified (principal); R05.9 Cough, unspecified; R09.81 Nasal congestion; F17.210 Nicotine dependence, cigarettes, uncomplicated
CPT/HCPCS: 87635; 87880; 99212; 99214; G0463

== ENCOUNTER 2025-02-22 21:51 | Outpatient (CLI) | payer MEDICAID, SELFPAY ==
--- OUTSIDE RECORDS SUMMARY | 2025-02-22 21:54 | XMS_ITS | Clinical Summary ---
Author Organization [facility] Address [address] [place] [address] Care Team Providers Care Glass Decorator Name Role Phone Jignesh Sheffield MD Primary Care Provider [phone] Allergies No known active allergies Medications Vit-Fe Fumarate-FA ( vitamin 28-0.8) 28-0.8 MG tablet tablet Take 1 tablet by mouth Daily. 02/08/2023 Active Active Problems Problem Noted Date Diagnosed Date Placenta previa antepartum 03/04/2023 Social History Tobacco Use Types Packs/Day Years Used Date Smoking Tobacco: Every Day Cigarettes 1 10 Alcohol Use Standard Drinks/Week Comments Never 0 (1 standard drink = 0.6 oz pur e alcohol) Abuse Screen Answer Date Recorded Unsafe at Home or Work/School Not on file Feels Threatened by Someone? Not on file 04/2023 Does Anyone Keep You from Co ntacting Others or Doint Things Outside the Home? Not on file 05/07/2023 Physical Sign of Abuse Present Not on file 1 Housing Stability Answer Date Recorded Current Living Arrangements Not on file 04/28 Potentially Unsafe Housing Conditions Not on arabella e 05/07/2023 Family and Community Support Answer Ulisses e Recorded Help with Day-to-Day Activities Not on file 05/07/2023 Lonely or Isolated Not on file 05/07/2023 Employment Answer Date Recorded Do you want help finding or keeping work or a man b? Not on file 05/07/2023 Disabilities Answer Date Recorded Concentrating, Remembering, or Making Decisions Difficulty Not on file 05/07/2023 Doing Errands Independently Difficulty Not on fi le 05/07/2023 Education Answer Date Recorded Help with school or training? Not on file Preferred Language Not on file 05/07/2023 Comments No Sex and Gender Information Value Date Recorded Sex Assigned at Not on file Legal Sex Female 1:50 PM EDT Gender Identity Not on file Sexual Orientation Not on file Last Filed Vital Signs Vital Sign Reading Time Taken Comments Blood Pressure 119/70 04/03/2023 9:50 AM EDT Pulse 98 06/26/2016 3:07 PM EST Temperature 37.7 C (99.8 F) 06/26/2016 3:07 PM EST Respiratory Rate 16 06/26/2016 3:07 PM EST Oxygen Saturation 98% 06/26/2016 3:07 PM EST Inhaled Oxygen Concentration - - Weight 80.3 kg (177 lb) 04/03/2023 9:50 AM EDT Height 170.2 cm (5' 7 ) 06/26/2016 3:07 PM EST Body Mass Index 27.72 06/26/2016 3:07 PM EST Plan of Treatment Health Maintenance Due Date Last Done Comments Annual Gynecologic Pelvic and Breast Exam 1992 Pneumococcal Vaccine 0-49 (1 of 2 - PCV) 2011 ANNUAL PHYSICAL 02/11/2023 HEPATITIS C SCREENING 02/11/2023 COVID-19 Vaccine (1 - season) 2024 INFLUENZA VACCINE 04/28/2025 TDAP/TD VACCINES (2 - Td or Tdap) 02/14/2033 023 Insurance [employer] Care Teams Glass Decorator Relationship Specialty Start Date End Date Jignesh Sheffield MD [address] [place] [address] PCP - General Internal Medicine 02/11/23
[2025-02-23 12:25] LABS: Influenza A, PCR Not Detected (NotDetected); Influenza B, PCR Not Detected (NotDetected)
[2025-02-23 17:22] LABS: Coronavirus 19, PCR Detected (NotDetected)
== END 2025-02-22 23:59 | disposition home or self-care (01) ==
LOC: LAB.DROPOF 21:52
PROVIDERS: PCP Nurse Practitioner Family; Visit Provider Nurse Practitioner Family
DX: J02.9 Acute pharyngitis, unspecified (principal)
CPT/HCPCS: 87631

== ENCOUNTER 2025-06-20 18:11 | Outpatient (CLI) | payer MEDICAID, SELFPAY ==
[2025-06-20 20:28] LABS: Coronavirus 19, PCR Not Detected (NotDetected); Influenza A, PCR Not Detected (NotDetected); Influenza B, PCR Not Detected (NotDetected)
--- OUTSIDE RECORDS SUMMARY | 2025-06-21 10:49 | XMS_ITS | Clinical Summary ---
Author Organization [facility] Address [address] [place] [address] Care Team Providers Care Bladder Tier Name Role Phone Jignesh Sheffield MD Primary Care Provider [phone] Allergies No known active allergies Medications Vit-Fe [...] ANNUAL PHYSICAL 02/11/2023 HEPATITIS C SCREENING 02/11/2023 INFLUENZA VACCINE 02/26/2025 TDAP/TD VACCINES (2 - Td or Tdap) 02/14/2033 023 Insurance [facility] MEDICAID Care Teams Bladder Tier Relationship Specialty Start Date End Date Jignesh Sheffield MD [address] [place], [place] [id number] PCP - General Internal Medicine 02/11/23
== END 2025-06-20 23:59 ==
LOC: LAB.DROPOF 06-21 10:30
PROVIDERS: PCP Pediatrics; Visit Provider Nurse Practitioner
DX: J06.9 Acute upper respiratory infection, unspecified (principal)
CPT/HCPCS: 87631